=== PATIENT | female | born 1985 | race Two or more races ===

== ENCOUNTER 2021-10-14 17:13 | Emergency (ER) | payer OTHER ==
[~2021-10-14] VITALS: Ht 165.1 cm; Wt 70.3 kg
[2021-10-14] MEDS ORDERED: IBUPROFEN (17:51)
[2021-10-14] MEDS ORDERED: METROPOLOL (17:52)
[2021-10-14] MEDS ORDERED: ULTRAM50 MG PO (23:27)
[2021-10-14] MEDS ORDERED: NORFLEX100MG PO (23:30)
== END 2021-10-15 00:10 | disposition home or self-care (01) ==
LOC: ER 17:13
DX: M51.26 Other intervertebral disc displacement, lumbar region (principal)